=== PATIENT | female | born 1970 | race Caucasian/White ===

== ENCOUNTER 2016-12-24 07:38 | Emergency (ER) | payer OTHER ==
[2016-12-24] MEDS ORDERED: HYDROmorphone 1 MG/ML SYRINGE IVP STA (08:07)
[2016-12-24] MEDS ORDERED: ONDANSETRON 4 MG/2 ML VIAL IVP STA (08:07)
[2016-12-24] MEDS ORDERED: SODIUM CHLORIDE 0.9% 1,000 ML IV ONE (08:07)
[2016-12-24] MEDS ORDERED: HYDROmorphone 1 MG/ML SYRINGE ONE (08:13)
[2016-12-24] MEDS ORDERED: ONDANSETRON 4 MG/2 ML VIAL ONE (08:14)
[2016-12-24] MEDS ORDERED: IOPAMIDOL-300 100 ML VIAL IVP ONE (10:02)
[2016-12-24] MEDS ORDERED: IOPAMIDOL-300 50 ML VIAL PO ONE (10:02)
== END 2016-12-24 12:35 | disposition home or self-care (01) ==
DX: R11.2 Nausea with vomiting, unspecified (principal); R19.7 Diarrhea, unspecified; R10.84 Generalized abdominal pain
CPT/HCPCS: 36415; 74177; 80053; 81001; 81025; 83690; 85025; 96361; 96374; 96375; 99284; J1170; Q9967

== ENCOUNTER 2017-05-26 14:30 | Outpatient (CLI) | payer BC, OTHER | END 2017-05-26 14:31 | disposition home or self-care (01) | LOC: LAB.WCP 14:30 | PROVIDERS: ATTEND Family Medicine | DX: N39.0 Urinary tract infection, site not specified (principal) | CPT/HCPCS: 87086 ==

== ENCOUNTER 2017-07-05 08:00 | Outpatient (CLI) | payer BC | END 2017-07-05 08:01 | disposition home or self-care (01) | LOC: LAB.R 08:00 | PROVIDERS: ATTEND Family Medicine | DX: N39.0 Urinary tract infection, site not specified (principal) | CPT/HCPCS: 87086 ==

== ENCOUNTER 2020-09-11 08:00 | Outpatient (CLI) | payer MEDICAID ==
--- NOTE | 2020-09-11 14:57 | XRAY Report ---
PROCEDURE: Shoulder 2 View RT INDICATIONS: RIGHT SHOULDER PAIN TECHNIQUE: 2 views of the shoulder were acquired. COMPARISON: None. FINDINGS: Bones: No fractures or dislocations. No suspicious bony lesions. There is a 7 mm superior subluxati on of distal clavicle at the AC joint. There is mild acromioclavicular and glenohumeral joint degener ation. Visualized ribs appear intact. Soft tissues: No suspicious soft tissue calcifications. IMPRESSION: 1. Mild superior subluxation of the distal clavicle at the right AC joint consistent with grade 2 AC separation. Weightbearing view of AC joints may be helpful if clinically indicated. 2. Mild acromioclavicular and glenohumeral joint degeneration. Reviewed by: Jorge Mckeon MD on 09/11/2020 2:55 PM PST Approved by: Jorge Mckeon MD on 09/11/2020 2:55 PM PST Station ID: [id number]
== END 2020-09-11 23:59 | disposition home or self-care (01) ==
LOC: DI.WCP 08:00
PROVIDERS: ATTEND Family Medicine
DX: S43.111A Subluxation of right acromioclavicular joint, initial encounter (principal); M19.011 Primary osteoarthritis, right shoulder

== ENCOUNTER 2021-03-23 13:16 | Outpatient (CLI) | payer MEDICAID ==
--- NOTE | 2021-03-23 16:55 | XRAY Report ---
PROCEDURE: Spine Entire AP/LAT INDICATIONS: PERSISTENT PX TECHNIQUE: 6 view(s) of the entire spine acquired. COMPARISON: CT of abdomen and pelvis dated 12/24/2016 FINDINGS: Bones: Straightening of normal cervical lordosis is seen. Degenerative endplate changes are noted at C4-5 and C5-6 levels. Bilateral facet hypertrophic changes are noted throughout mid to lower cervica l spine. There is very mild rightward curvature of lower thoracic spine centered at T9 level. Degener ative endplate changes are noted throughout mid to lower thoracic spine. Alignment of lumbar spine is anatomic. Degenerative endplate changes and bilateral facet arthrosis at L4-5 and L5-S1 levels are s een. Chondrocalcinosis involving intervertebral disc at L2-3 level is also seen. No fractures or disl ocations. No suspicious bony lesions. Soft tissues: No suspicious soft tissue calcifications. IMPRESSION: 1. No fracture or dislocation is seen in cervical, thoracic and lumbar spine. 2. Mild degenerative disc disease at C4-5 and C5-6 levels, throughout mid to lower thoracic spine, an d at L4-5 and L5-S1 levels as above. Reviewed by: Dillan Zavala MD on 03/23/2021 4:54 PM PDT Approved by: Dillan Zavala MD on 03/23/2021 4:54 PM PDT Station ID: [id number]
== END 2021-03-23 13:17 | disposition home or self-care (01) ==
LOC: DI.N 13:16
PROVIDERS: ATTEND Chiropractor
DX: M50.321 Other cervical disc degeneration at C4-C5 level (principal); M51.36 Other intervertebral disc degeneration, lumbar region; M51.34 Other intervertebral disc degeneration, thoracic region; M99.01 Segmental and somatic dysfunction of cervical region; M99.02 Segmental and somatic dysfunction of thoracic region; M99.03 Segmental and somatic dysfunction of lumbar region; M99.04 Segmental and somatic dysfunction of sacral region

== ENCOUNTER 2021-06-15 11:43 | Outpatient (CLI) | payer MEDICAID ==
[2021-06-15 14:47] LABS: BILIRUBIN,URINE NEGATIVE (NEGATIVE); KETONES,URINE (UA) NEGATIVE (NEGATIVE)
[2021-06-15 14:48] LABS: CLARITY,URINE CLOUDY (CLEAR)
[2021-06-15 14:49] LABS: GLUCOSE, URINE (UA) 100 mg/dL (NEGATIVE); PH,URINE 6.5 PH (5.0-7.5)
[2021-06-15 14:53] LABS: BACTERIA,URINE Many /HPF (None Seen); RBC,URINE 0-5 /HPF (0-5); SQUAMOUS EPITHELIAL CELL,UR FEW Squamous (<= Few)
== END 2021-06-15 23:59 | disposition home or self-care (01) ==
LOC: LAB.N 11:43
PROVIDERS: ATTEND Nurse Practitioner
DX: R39.9 Unspecified symptoms and signs involving the genitourinary system (principal)
CPT/HCPCS: 81001; 87086; 87181

== ENCOUNTER 2021-06-24 08:00 | Outpatient (CLI) | payer MEDICAID | END 2021-06-24 08:01 | disposition home or self-care (01) | LOC: LAB.N 08:00 | PROVIDERS: ATTEND Family Medicine | DX: R30.0 Dysuria (principal) | CPT/HCPCS: 87086 ==

== ENCOUNTER 2022-09-17 08:00 | Outpatient (CLI) | payer MEDICAID | END 2022-09-17 23:59 | disposition home or self-care (01) | LOC: LAB.N 08:00 | PROVIDERS: ATTEND Nurse Practitioner | DX: N39.0 Urinary tract infection, site not specified (principal) | CPT/HCPCS: 87086; 87181 ==

== ENCOUNTER 2022-10-06 08:00 | Outpatient (CLI) | payer MEDICAID | END 2022-10-06 23:59 | disposition home or self-care (01) | LOC: LAB.N 08:00 | PROVIDERS: ATTEND Nurse Practitioner | DX: R35.0 Frequency of micturition (principal) | CPT/HCPCS: 87086 ==

== ENCOUNTER 2023-03-02 10:45 | Outpatient (CLI) | payer MEDICAID | END 2023-03-02 11:00 | disposition home or self-care (01) | LOC: LAB.N 10:45 | PROVIDERS: ATTEND Physician Assistant | DX: N39.0 Urinary tract infection, site not specified (principal) | CPT/HCPCS: 87077; 87086 ==

== ENCOUNTER 2023-05-24 09:15 | Outpatient (CLI) | payer MEDICAID | END 2023-05-24 09:30 | disposition home or self-care (01) | LOC: LAB.N 09:15 | PROVIDERS: ATTEND Specialist | DX: R30.0 Dysuria (principal) | CPT/HCPCS: 87086; 87181 ==

== ENCOUNTER 2023-06-22 12:15 | Outpatient (CLI) | payer MEDICAID | END 2023-06-22 12:30 | disposition home or self-care (01) | LOC: LAB.N 12:15 | PROVIDERS: ATTEND Registered Nurse | DX: R30.0 Dysuria (principal) | CPT/HCPCS: 87086 ==

== ENCOUNTER 2023-08-15 09:15 | Outpatient (CLI) | payer MEDICAID | END 2023-08-15 09:30 | disposition home or self-care (01) | LOC: LAB.N 09:15 | PROVIDERS: ATTEND Family Medicine | DX: N39.0 Urinary tract infection, site not specified (principal) | CPT/HCPCS: 87086; 87181 ==